=== PATIENT | female | born 1990 | race Caucasian/White ===

== ENCOUNTER 2017-08-13 15:38 | Emergency (ER) | payer OTHER ==
[2017-08-13 16:49] LABS: KETONE, URINE AUTO RFX NEGATIVE (NEGATIVE); LEUKOCYTE ESTERASE UR AUTO RFX NEGATIVE (NEGATIVE); MUCUS, URINE RFX SMALL (NEGATIVE); NITRITE, URINE AUTO RFX NEGATIVE (NEGATIVE); RBC, URINE AUTO RFX 1 /HPF (0-3); SPECIFIC GRAVITY UR AUTO RFX 1.009 (1.002-1.035); SQUAM EPITHELIAL CELL UR AURFX 0 /HPF (0-6); WBC, URINE AUTO RFX 0 /HPF (0-3)
[2017-08-13 17:49] LABS: HCG, SERUM QUANTITATIVE 27471 MIU/ML
[2017-08-13 19:12] LABS: CHLAMYDIA DNA AMPLIFICATION NEGATIVE (NEGATIVE); GC DNA AMPLIFICATION NEGATIVE (NEGATIVE)
== END 2017-08-13 18:51 | disposition home or self-care (01) ==
LOC: M ED 15:38
DX: O26.891 Other specified pregnancy related conditions, first trimester (principal); R11.0 Nausea; R10.2 Pelvic and perineal pain; M54.5 Low back pain; Z3A.01 Less than 8 weeks gestation of pregnancy
CPT/HCPCS: 76801

== ENCOUNTER → 2021-11-11 | Outpatient (CLI) | payer OTHER ==
[~2021-11-11] MED LIST: COLA100C5 PO; FERR325T3 PO; IBUP-1114 PO; MAPA500T2 PO; PRENTAB9 PO
== END ==
LOC: M RAD 06:31
PROVIDERS: ATTEND Physician Assistant Medical
DX: R10.31 Right lower quadrant pain (principal); Z97.5 Presence of (intrauterine) contraceptive device

== ENCOUNTER 2022-07-21 11:14 | Observation (INO) | payer OTHER ==
[~2022-07-21] VITALS: Ht 157.5 cm; Wt 57.5 kg
[~2022-07-21 11:14] MED LIST changes: +AMPH1CAP16 PO; +COLL1CAP PO; +GABA-282 PO; +HEPARIN SOD (PORCINE) 5000UNITS/ML 1ML VIAL/SYRINGE SQ ONE; +LIDOCAINE 2% 100MG/5ML SDV (FOR ANES.) As Ordered ONE; +MELA5CAP2 PO; +MIDAZOLAM INJ 2MG/2ML VIAL As Ordered ONE; +OMEG10002 PO; +ONDANSETRON 4MG 2ML VIAL As Ordered ONE; +ROCURONIUM BROMIDE 50MG/5ML VIAL As Ordered ONE; +SUGAMMADEX SODIUM 500 MG/5 ML VIAL (BRIDION) As Ordered ONE; +TRAZ-252 PO; +ZINC100T3 PO; +fentaNYL 250 MCG/5 ML INJECTION As Ordered ONE; +propofoL 200 MG/20 ML VIAL As Ordered ONE
[2022-07-21] MEDS ORDERED: LR 1,000 ML IV SCH ×2 (12:15→17:55)
[2022-07-21] MEDS ORDERED: BUPIVACAINE LIPOSOME/PF 1.3% 20ML VIAL (13.3MG/ML)(EXPAREL) As Ordered ONE (14:17)
[2022-07-21] MEDS ORDERED: GENTAMICIN SULF 80MG/2ML VIAL As Ordered ONE (14:17)
[2022-07-21] MEDS ORDERED: BUPIVACAINE HCL 0.25% 10ML VIAL As Ordered ONE (14:18)
[2022-07-21] MEDS: ceFAZolin SOD 2 GM in IV 1 EA IV ONE ×2 (15:03→15:05)
[2022-07-21] MEDS ORDERED: ACETAMINOPHEN 1000MG 100ML IV BAG As Ordered ONE (15:12)
[2022-07-21] MEDS ORDERED: HYDROmorphone HCL 2MG/ML 1ML VIAL As Ordered ONE (15:42)
[2022-07-21] MEDS ORDERED: fentaNYL 100 MCG/2 ML INJECTION IV PRN (17:55)
[2022-07-21] MEDS ORDERED: oxyCODONE 5MG TAB PO PRN (17:55)
[2022-07-21] MEDS ORDERED: ONDANSETRON 4MG 2ML VIAL IV PRN ×2 (17:55→18:00)
[2022-07-21] MEDS ORDERED: HYDROMORPHONE HCL 0.5 MG/ 0.5 ML SYRINGE IV PRN (17:55)
[2022-07-21] MEDS ORDERED: ACETAMINOPHEN TAB 650MG DOSE (2X325MG) PO PRN (18:00)
[2022-07-21] MEDS ORDERED: traMADol 50 MG TAB PO PRN (18:00)
[2022-07-21] MEDS ORDERED: PERCOCET 5MG/325MG TAB PO PRN (18:00)
[2022-07-21] MEDS ORDERED: DOCUSATE SODIUM 100MG CAPSULE PO PRN (18:00)
[2022-07-21 18:50] VITALS: BP 115/73
[2022-07-21] MEDS: LR 1,000 ML IV SCH (19:30)
[2022-07-21 19:36] VITALS: BP 112/71
[2022-07-21 20:04] VITALS: BP 111/70
[2022-07-21 21:09] VITALS: BP 110/69
[2022-07-21 22:00] VITALS: BP 109/65
[2022-07-21] MEDS: ceFAZolin SOD 1 GM in D5W MINI-BAG PLUS 50 ML IV SCH (22:32)
[2022-07-21 23:00] VITALS: BP 108/64
[2022-07-22 02:00] VITALS: BP 105/64
[2022-07-22 06:00] VITALS: BP 104/65
[2022-07-22] MEDS: ceFAZolin SOD 1 GM in D5W MINI-BAG PLUS 50 ML IV SCH (06:11)
[2022-07-22] MEDS: LR 1,000 ML IV SCH (06:28)
[2022-07-22 08:00] VITALS: BP 100/61
[2022-07-22 09:00] VITALS: BP 100/60
[2022-07-22 10:00] VITALS: BP 100/60
[2022-07-22] MEDS ORDERED: TRAM50TA2 PO (11:49)
== END 2022-07-22 13:10 | disposition home or self-care (01) ==
LOC: M SDC 11:14 → M MS5PR 11:15
PROVIDERS: ADMIT Plastic Surgery Surgery of the Hand; ATTEND Plastic Surgery Surgery of the Hand
DX: M54.07 Panniculitis affecting regions of neck and back, lumbosacral region (principal); L98.7 Excessive and redundant skin and subcutaneous tissue; D17.1 Benign lipomatous neoplasm of skin and subcutaneous tissue of trunk; Z98.84 Bariatric surgery status; D64.9 Anemia, unspecified; F41.9 Anxiety disorder, unspecified; F32.A Depression, unspecified; F43.10 Post-traumatic stress disorder, unspecified; F90.9 Attention-deficit hyperactivity disorder, unspecified type; Z79.899 Other long term (current) drug therapy
CPT/HCPCS: 15830; 15847; 87635; 88302; 96361; 96365; 96366; C9290; J0131; J0690; J1100; J1170; J1580; J2250; J2405; J3010; S0020